=== PATIENT | male | born 1965 | race Two or more races ===

== ENCOUNTER 2020-09-06 17:20 | Inpatient (IN) | payer OTHER ==
[~2020-09-06] VITALS: Ht 172.7 cm; Wt 88.5 kg
[2020-09-06] MEDS ORDERED: ACETAMINOPHEN 325 MG TAB PO ONE (17:45)
[2020-09-06 18:19] LABS: Basophils # (auto) 0 10 ^3/uL (0-0.2); Basophils % (auto) 0.1 % (0.0-2.0); Eosinophils # (auto) 0 10 ^3/uL (0-0.8); Hematocrit 43.6 % (41.0-53.0); Hemoglobin 15.9 g/dL (13.5-17.5); Lymphocytes # (auto) 1.1 10 ^3/uL (0.4-5.4); Lymphocytes % (auto) 16.1 % (10.0-50.0); Mean Corpuscular Hgb Conc. 36.5 g/dL (32.0-36.0); Monocytes # (auto) 0.9 10 ^3/uL (0-1.3); Monocytes % (auto) 12.7 % (0.0-12.0); Neutrophils # (auto) 4.9 10 ^3/uL (1.6-8.6); Neutrophils % (auto) 71.1 % (37.0-80.0); Nucleated Red Blood Cells % 0.2 %; Platelet Count (auto) 199 10^3/uL (140-450); Red Blood Cells 5.12 10^6/uL (4.5-5.90); Red Cell Distribution Width 13.4 % (11.8-14.3); White Blood Cell 6.9 10^3/uL (4.4-10.8)
[2020-09-06 18:35] LABS: Albumin 3.2 g/dL (3.4-5.0); Anion Gap 7 (5-15); Blood Urea Nitrogen 21 mg/dL (7-18); Carbon Dioxide 29 mmol/L (21-32); Chloride 99 mmol/L (98-107); Glucose 224 mg/dL (74-106); Potassium 3.7 mmol/L (3.5-5.1); Sodium 135 mmol/L (136-145)
[2020-09-06 18:41] LABS: Alanine Aminotransferase 43 U/L (16-61); Alkaline Phosphatase 86 U/L (45-117); Aspartate Aminotransferase 22 U/L (15-37); BUN/Creatinine Ratio 17.8; GFR African American 82 mL/min; GFR Non-African American 68 mL/min; Total Protein 8.5 g/dL (6.4-8.2)
[2020-09-06 18:47] LABS: INR 1.01 (0.9-1.15); Partial Thromboplastin Time 25.6 sec (23.0-31.2)
[2020-09-06 20:46] LABS: Lactic Acid w/Reflex 2.9 mmol/L (0.4-2.0)
[2020-09-06] MEDS ORDERED: ZINC SULFATE 220mg CAP or TAB PO ONE (21:00)
[2020-09-06] MEDS ORDERED: ASCORBIC ACID 500 MG TAB PO ONE (21:00)
[2020-09-06] MEDS ORDERED: DexAMETHasone SOD PHOS 10MG/1ML VIAL INJ IV ONE (21:00)
[2020-09-06] MEDS ORDERED: AZITHROMYCIN 500MG/ 250ML 250 ML IV ONE (21:00)
[2020-09-06] MEDS ORDERED: TEMAZEPAM 15 MG CAP PO PRN (21:30)
[2020-09-06] MEDS ORDERED: ACETAMINOPHEN 500 MG TAB PO PRN (21:30)
[2020-09-06] MEDS ORDERED: NITROGLYCERIN 0.4 MG SL TAB SL PRN (21:30)
[2020-09-06] MEDS ORDERED: MORPHINE SULF INJ 2 MG/ML SYRINGE 1ML IV PRN (21:30)
[2020-09-06] MEDS ORDERED: ONDANSETRON HCL 4 MG/2 ML VIAL IV PRN (21:30)
[2020-09-06] MEDS ORDERED: DEXTROSE (50%) 50ML SYRG IV PRN (21:30)
[2020-09-06] MEDS: ACCU-CHEK COMFORT CURVE STRIP VI SCH (22:28)
[2020-09-06] MEDS: InsuLIN REG 1unit/0.01ml Soln (100units/ml) SC SCH (22:29)
[2020-09-06] MEDS: ENOXAPARIN SOD 40 MG/0.4 ML SYRINGE SC SCH (23:24)
[2020-09-06] MEDS: FAMOTIDINE 20 MG TAB PO SCH (23:24)
[2020-09-06 23:47] VITALS: BP 105/73
[2020-09-07 00:24] LABS: CRP High Sensitivity 4.56 mg/dL (< 0.3); Lactate Dehydrogenase 308 U/L (87-241)
[2020-09-07 01:10] VITALS: BP 105/73
[2020-09-07] MEDS ORDERED: METF-370 PO (01:47)
[2020-09-07] MEDS ORDERED: SIMV10TA84 PO (01:47)
[2020-09-07] MEDS: ACCU-CHEK COMFORT CURVE STRIP VI SCH ×4 (06:55→22:15)
[2020-09-07] MEDS: InsuLIN REG 1unit/0.01ml Soln (100units/ml) SC SCH ×4 (06:59→22:15)
[2020-09-07 07:32] LABS: Basophils # (auto) 0 10 ^3/uL (0-0.2); Eosinophils # (auto) 0 10 ^3/uL (0-0.8); Lymphocytes # (auto) 0.9 10 ^3/uL (0.4-5.4); Monocytes # (auto) 0.5 10 ^3/uL (0-1.3); White Blood Cell 6.1 10^3/uL (4.4-10.8)
[2020-09-07 07:35] LABS: Basophils % (auto) 0.2 % (0.0-2.0); Eosinophils % (auto) 0.1 % (0.0-7.0); Hematocrit 39.5 % (41.0-53.0); Hemoglobin 14.5 g/dL (13.5-17.5); Lymphocytes % (auto) 14.1 % (10.0-50.0); Mean Corpuscular Hemoglobin 30.9 pg (28.0-32.0); Mean Corpuscular Hgb Conc. 36.8 g/dL (32.0-36.0); Mean Corpuscular Volume 83.8 fL (80.0-100.0); Neutrophils # (auto) 4.7 10 ^3/uL (1.6-8.6); Neutrophils % (auto) 77.6 % (37.0-80.0); Nucleated Red Blood Cells % 0.2 %; Platelet Count (auto) 204 10^3/uL (140-450); Red Blood Cells 4.71 10^6/uL (4.5-5.90)
[2020-09-07 07:37] LABS: Potassium 4.2 mmol/L (3.5-5.1)
[2020-09-07 07:45] LABS: Albumin 2.7 g/dL (3.4-5.0); Bilirubin, Total 1.1 mg/dL (0.2-1.0); Calcium 8.3 mg/dL (8.5-10.1); Total Protein 7.7 g/dL (6.4-8.2)
[2020-09-07 08:00] VITALS: BP 110/75
[2020-09-07] MEDS: BUDESONIDE (INHALATION) 180 MCG IH IN SCH ×2 (09:00→22:00)
[2020-09-07] MEDS: CHOLECALCIFEROL (VITD3) 2,000 UNIT CAP PO SCH (09:30)
[2020-09-07] MEDS: FAMOTIDINE 20 MG TAB PO SCH ×2 (09:30→22:15)
[2020-09-07] MEDS: ZINC SULFATE 220mg CAP or TAB PO SCH (09:30)
[2020-09-07] MEDS: ASCORBIC ACID 1,000 MG TAB PO SCH (09:30)
[2020-09-07] MEDS: ENOXAPARIN SOD 40 MG/0.4 ML SYRINGE SC SCH ×2 (09:30→22:15)
[2020-09-07] MEDS: DexAMETHasone SOD PHOS 10MG/1ML VIAL INJ IV SCH (09:30)
[2020-09-07] MEDS ORDERED: DEXTROSE (50%) 50ML SYRG IV PRN (10:15)
[2020-09-07] MEDS ORDERED: ERGOCALCIFEROL 50,000 UNIT(1.25MG) CAP PO SCH (10:15)
[2020-09-07] MEDS ORDERED: FUROSEMIDE 20 MG/2 ML VIAL IV ONE (10:30)
[2020-09-07] MEDS ORDERED: BUDESONIDE (INHALATION) 0.5 MG/2 ML NEB NEB ONE (10:30)
[2020-09-07] MEDS ORDERED: REMDESIVIR PER PHARMACY 0 ML IV SCH (10:30)
[2020-09-07 10:48] LABS: Cholesterol 84 mg/dL (< 200)
[2020-09-07 10:51] LABS: HDL Cholesterol 38 mg/dL (40-59); LDL Cholesterol 40 mg/dL (< 100); Triglycerides 90 mg/dL (< 150)
[2020-09-07 14:55] LABS: Urine Bacteria NONE SEEN /hpf (None Seen); Urine Blood Negative /uL (Negative); Urine Hyaline Cast FEW /lpf (0 - 2); Urine Mucus FEW (None Seen); Urine Specific Gravity 1.014 (1.001-1.035); Urine WBC 2 /hpf (0 - 3)
[2020-09-07] MEDS ORDERED: REMDESIVIR 200 MG in NS 210ml LOADING DOSE ADULT IV ONE (15:00)
[2020-09-07 16:00] VITALS: BP 100/75
[2020-09-07] MEDS ORDERED: BUDESONIDE (INHALATION) 0.5 MG/2 ML NEB NEB SCH (22:00)
[2020-09-07] MEDS ORDERED: INSULIN LANTUS (GLARGINE) 1 /0.01ml (100units/ml) SC SCH (22:00)
[2020-09-07] MEDS ORDERED: PATIENTS OWN MEDICATION (PULMICORT 360 MCG) IH SCH (22:00)
[2020-09-07] MEDS: ALBUTEROL SULF HFA 90MCG INH 200DOSE IN PRN (22:00)
[2020-09-07] MEDS: INSULIN LANTUS (GLARGINE) 1 /0.01ml (100units/ml) SC SCH (22:15)
[2020-09-08] VITALS: BP 96/61
[2020-09-08] MEDS: InsuLIN REG 1unit/0.01ml Soln (100units/ml) SC SCH ×4 (07:00→22:30)
[2020-09-08] MEDS: ACCU-CHEK COMFORT CURVE STRIP VI SCH ×4 (07:06→22:30)
[2020-09-08 07:27] LABS: Albumin 2.8 g/dL (3.4-5.0); Calcium 8.9 mg/dL (8.5-10.1); Potassium 3.6 mmol/L (3.5-5.1)
[2020-09-08 07:32] LABS: BUN/Creatinine Ratio 26.3; Bilirubin, Total 0.9 mg/dL (0.2-1.0); Total Protein 7.4 g/dL (6.4-8.2)
[2020-09-08 08:00] VITALS: BP 93/60
[2020-09-08] MEDS: BUDESONIDE (INHALATION) 180 MCG IH IN SCH ×2 (10:00→20:21)
[2020-09-08] MEDS: DexAMETHasone SOD PHOS 10MG/1ML VIAL INJ IV SCH (12:10)
[2020-09-08] MEDS: ZINC SULFATE 220mg CAP or TAB PO SCH (12:11)
[2020-09-08] MEDS: FAMOTIDINE 20 MG TAB PO SCH ×2 (12:11→22:30)
[2020-09-08] MEDS: ASCORBIC ACID 1,000 MG TAB PO SCH (12:13)
[2020-09-08] MEDS: ENOXAPARIN SOD 40 MG/0.4 ML SYRINGE SC SCH ×2 (12:14→22:30)
[2020-09-08] MEDS: CHOLECALCIFEROL (VITD3) 2,000 UNIT CAP PO SCH (12:14)
[2020-09-08] MEDS: REMDESIVIR 100mg 100 MG in SODIUM CHL 0.9% 230 ML IV SCH (15:17)
[2020-09-08 16:15] VITALS: BP 97/70
[2020-09-08] MEDS: ALBUTEROL SULF HFA 90MCG INH 200DOSE IN PRN (20:21)
[2020-09-08] MEDS: INSULIN LANTUS (GLARGINE) 1 /0.01ml (100units/ml) SC SCH (22:30)
[2020-09-09] VITALS: BP_SYST 108; BP_SYST 96; BP_DIAS 68; BP_DIAS 71
[2020-09-09] MEDS: ACCU-CHEK COMFORT CURVE STRIP VI SCH ×4 (06:32→22:22)
[2020-09-09] MEDS: InsuLIN REG 1unit/0.01ml Soln (100units/ml) SC SCH ×4 (06:33→22:23)
[2020-09-09 08:00] VITALS: BP 94/62
[2020-09-09] MEDS: FAMOTIDINE 20 MG TAB PO SCH ×2 (09:25→22:21)
[2020-09-09] MEDS: ZINC SULFATE 220mg CAP or TAB PO SCH (09:25)
[2020-09-09] MEDS: DexAMETHasone SOD PHOS 10MG/1ML VIAL INJ IV SCH (09:25)
[2020-09-09] MEDS: ENOXAPARIN SOD 40 MG/0.4 ML SYRINGE SC SCH ×2 (09:26→22:22)
[2020-09-09] MEDS: ASCORBIC ACID 1,000 MG TAB PO SCH (09:26)
[2020-09-09] MEDS: CHOLECALCIFEROL (VITD3) 2,000 UNIT CAP PO SCH (09:26)
[2020-09-09] MEDS: BUDESONIDE (INHALATION) 180 MCG IH IN SCH ×2 (10:30→19:27)
[2020-09-09] MEDS: ALBUTEROL SULF HFA 90MCG INH 200DOSE IN PRN ×2 (10:30→21:19)
[2020-09-09 12:45] LABS: Albumin 2.7 g/dL (3.4-5.0); Potassium 4.1 mmol/L (3.5-5.1)
[2020-09-09 12:50] LABS: BUN/Creatinine Ratio 23.9; Total Protein 7.6 g/dL (6.4-8.2)
[2020-09-09 13:09] LABS: Calcium 8.8 mg/dL (8.5-10.1)
[2020-09-09] MEDS: REMDESIVIR 100mg 100 MG in SODIUM CHL 0.9% 230 ML IV SCH (14:27)
[2020-09-09 16:00] VITALS: BP 102/74
[2020-09-09] MEDS: INSULIN LANTUS (GLARGINE) 1 /0.01ml (100units/ml) SC SCH (22:23)
[2020-09-10] VITALS: BP 107/71
[2020-09-10] MEDS: ACCU-CHEK COMFORT CURVE STRIP VI SCH ×3 (06:33→17:17)
[2020-09-10] MEDS: InsuLIN REG 1unit/0.01ml Soln (100units/ml) SC SCH ×3 (06:35→17:25)
[2020-09-10 07:45] LABS: Basophils # (auto) 0 10 ^3/uL (0-0.2); Eosinophils # (auto) 0 10 ^3/uL (0-0.8); Eosinophils % (auto) 0.3 % (0.0-7.0); Hematocrit 39.1 % (41.0-53.0); Hemoglobin 13.8 g/dL (13.5-17.5); Lymphocytes # (auto) 1.3 10 ^3/uL (0.4-5.4); Lymphocytes % (auto) 11.8 % (10.0-50.0); Mean Corpuscular Hgb Conc. 35.3 g/dL (32.0-36.0); Mean Corpuscular Volume 84.9 fL (80.0-100.0); Monocytes # (auto) 1.1 10 ^3/uL (0-1.3); Monocytes % (auto) 10.1 % (0.0-12.0); Neutrophils # (auto) 8.6 10 ^3/uL (1.6-8.6); Neutrophils % (auto) 77.8 % (37.0-80.0); Platelet Count (auto) 297 10^3/uL (140-450); Red Blood Cells 4.61 10^6/uL (4.5-5.90); Red Cell Distribution Width 13.4 % (11.8-14.3)
[2020-09-10 08:00] VITALS: BP 101/64
[2020-09-10 08:01] LABS: Calcium 8.6 mg/dL (8.5-10.1)
[2020-09-10 08:07] LABS: Albumin 2.6 g/dL (3.4-5.0); BUN/Creatinine Ratio 24.5; Bilirubin, Total 0.8 mg/dL (0.2-1.0)
[2020-09-10] MEDS: BUDESONIDE (INHALATION) 180 MCG IH IN SCH (08:15)
[2020-09-10] MEDS: ZINC SULFATE 220mg CAP or TAB PO SCH (09:23)
[2020-09-10] MEDS: ENOXAPARIN SOD 40 MG/0.4 ML SYRINGE SC SCH (09:23)
[2020-09-10] MEDS: DexAMETHasone SOD PHOS 10MG/1ML VIAL INJ IV SCH (09:23)
[2020-09-10] MEDS: ASCORBIC ACID 1,000 MG TAB PO SCH (09:23)
[2020-09-10] MEDS: CHOLECALCIFEROL (VITD3) 2,000 UNIT CAP PO SCH (09:23)
[2020-09-10] MEDS: FAMOTIDINE 20 MG TAB PO SCH (09:23)
[2020-09-10 14:10] VITALS: BP 110/75
[2020-09-10] MEDS: REMDESIVIR 100mg 100 MG in SODIUM CHL 0.9% 230 ML IV SCH (15:11)
[2020-09-10 16:00] VITALS: BP 101/70
[2020-09-10] MEDS ORDERED: METF-372 PO (18:18)
[2020-09-10] MEDS ORDERED: CHOL1CAP47 PO (18:18)
[2020-09-10] MEDS ORDERED: FAMO-12 PO (18:18)
[2020-09-10] MEDS ORDERED: FURO1TAB33 PO (18:18)
[2020-09-10] MEDS ORDERED: ASPI81CH59 PO (18:18)
[2020-09-10] MEDS ORDERED: AZIT500T66 PO (18:18)
[2020-09-10] MEDS ORDERED: DEX4T PO (18:18)
[2020-09-10] MEDS ORDERED: ALBUAER3 IN (18:18)
[2020-09-10] MEDS ORDERED: ASCO10003 PO (18:18)
[2020-09-10] MEDS ORDERED: ZINC100T5 PO (18:18)
[2020-09-10] MEDS ORDERED: ATO40T PO (18:18)
[2020-09-10] MEDS ORDERED: POTA10TA51 PO (18:18)
[2020-09-10] MEDS ORDERED: SITA50TA PO (18:18)
== END 2020-09-10 19:09 | disposition home or self-care (01) | DRG 177 ==
LOC: ER 17:20 → TELE 21:39 → TELE-EAST 22:35
PROVIDERS: ADMIT Nurse Practitioner; ATTEND Internal Medicine
PROC: XW033E5 Introduction of Remdesivir Anti-infective into Peripheral Vein, Percutaneous Approach, New Technology Group 5 (ICD-10-PCS; principal; 2020-09-06)
DX: U07.1 COVID-19 (principal); J12.82 Pneumonia due to coronavirus disease 2019; J96.01 Acute respiratory failure with hypoxia; E87.1 Hypo-osmolality and hyponatremia; E55.9 Vitamin D deficiency, unspecified; I10 Essential (primary) hypertension; E11.9 Type 2 diabetes mellitus without complications; Z82.49 Family history of ischemic heart disease and other diseases of the circulatory system
CPT/HCPCS: 36415; 71045; 80053; 80061; 81001; 82306; 82728; 82962; 83605; 83615; 83735; 83880; 84443; 84484; 85025; 85379; 85610; 85730; 86141; 87040; 87426; 94640; G0378; J1100; J1815